=== PATIENT | male | born 1990 | race Caucasian/White ===

== ENCOUNTER 2017-12-31 18:25 | Emergency (ER) | payer OTHER ==
[2017-12-31 18:46] VITALS: BP 135/77; PULSE 77; TEMP 98.6; BMI 27.8
--- NOTE | 2017-12-31 18:51 | PDOC ---
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 Patient states he accidentally slammed a car door onto his finger yesterday. Pain is described as 5/10 throbbing nonradiating constant discomfort. He denies extremity numbness or tingling sensation. Patient denies any other complaints. Occurred: reports: yesterday Pain Location: reports: upper extremity (right 5th finger) Past History - Past Medical History Allergies/Adverse Reactions: Allergies Allergy/AdvReac Type Severity Reaction Status Date / Time nickel Allergy Verified 12/31/17 18:42 No Known Drug Allergies Allergy Verified 12/31/17 18:42 Home Medications: Ambulatory Orders NK [No Known Home Medication] 12/31/17 COPD: No - Surgical History Appendectomy: Yes - Immunization History Immunization Up to Date: Yes (Hep B OK. ) - Suicide/Smoking/Psychosocial Hx Smoking Status: No Smoking History: Never smoked Have you smoked in the past 12 months: No Number of Cigarettes Smoked Daily: 0 Hx Alcohol Use: Yes (SOCIAL) Drug/Substance Use Hx: No Substance Use Type: None Review of Systems - Review of Systems Able to Perform ROS?: Yes Comments:: 12/31/17 18:50 right 5th digit +pain Neg ext numbness/tingling sensation Is the patient limited Gambian proficient: No *Physical Exam - Vital Signs Last Vital Signs Temp Pulse Resp BP Pulse Ox 98.6 F 77 18 135/77 99 12/31/17 18:42 12/31/17 18:42 12/31/17 18:42 12/31/17 18:42 12/31/17 18:42 - Physical Exam Comments: 12/31/17 18:50 Right 5th digit 100% subungual hematoma cap refill <2sec 2 point sensation intact F.R.O.M. Procedure: trephinate 5th right fingernail +blodd drainage +instant relief ED Treatment Course - RADIOLOGY Radiology Studies Ordered: Category Date Time Status FINGER(S) RIGHT [RAD] Stat Radiology 12/31/17 18:34 Ordered Radiograph Interpretation: 12/31/17 19:15 Xray right 5th digit; neg fx/dislocations Medical Decision Making - Medical Decision Making 12/31/17 18:52 27-year-old male who is right hand dominant presents with a complete subungual hematoma to the right fifth digit. Procedure/trephination of the nail with blood drainage. Instant relief of pain. X-ray performed /negative fracture *DC/Admit/Observation/Transfer Diagnosis at time of Disposition: Subungual hematoma of fingernail Qualifiers: Encounter type: initial encounter Qualified Code(s): S60.10XA - Contusion of unspecified finger with damage to nail, initial encounter - Discharge Dispostion Disposition: HOME Condition at time of disposition: Stable Admit: No - Referrals Referrals: Tate Palmer MD [Staff Physician] - - Patient Instructions Printed Discharge Instructions: DI for Subungual Hematoma Additional Instructions: Tylenol alternating with Motrin as needed for pain Return to the ER as needed - Post Discharge Activity Forms/Work/School Notes: Back to Work
== END 2017-12-31 19:25 | disposition home or self-care (01) ==
LOC: JERFT 18:25
PROC: 0H9QXZZ Drainage of Finger Nail, External Approach (ICD-10-PCS; principal; 2017-12-31)
DX: S60.151A Contusion of right little finger with damage to nail, initial encounter (principal); V48.4XXA Person boarding or alighting a car injured in noncollision transport accident, initial encounter; Y92.488 Other paved roadways as the place of occurrence of the external cause; Y93.89 Activity, other specified; Y99.0 Civilian activity done for income or pay
CPT/HCPCS: 73140-TC-RT-FY; 99281-25

== ENCOUNTER 2019-08-16 23:44 | Emergency (ER) | payer OTHER ==
[2019-08-16 23:52] VITALS: BP 120/70; PULSE 80; TEMP 98.3; BMI 22.3
[2019-08-17] MEDS ORDERED: EMTRICITABINE 200MG/TENOFOVIR 300MG PO ONE
[2019-08-17] MEDS ORDERED: RALTEGRAVIR POTASSIUM 400 MG TAB PO ONE
--- NOTE | 2019-08-17 00:05 | PDOC ---
Post Exposure HPI - General Chief Complaint: Blood/Body Fluid Exposure [facility] Stated Complaint: EXPOSURE Time Seen by Provider: 08/16/19 23:57 History Source: Patient Exam Limitations: No Limitations - History of Present Illness Initial Comments: 08/17/19 00:02 HISTORY OF PRESENT ILLNESS: 29-year-old male without significant medical history of presents emergency department for evaluation of blood exposure. 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 No recent travel or sick contacts. PAST MEDICAL HISTORY: Denies past medical history SURGICAL HISTORY: Denies ALLERGIES: No known drug allergies REVIEW OF SYSTEMS General/Constitutional: Denies fever or chills. Denies weakness, weight change. HEENT: Denies change in vision. Denies ear pain or discharge. Denies sore throat. Cardiovascular: Denies chest pain or shortness of breath. Respiratory: Denies cough, wheezing, or hemoptysis. Gastrointestinal: Denies nausea, vomiting, diarrhea or constipation. Denies rectal bleeding. Genitourinary: Denies dysuria, frequency, or change in urination. Musculoskeletal: Denies joint or muscle swelling or pain. Denies neck or back pain. Skin and breasts: Denies rash or easy bruising. Neurologic: Denies headache, vertigo, loss of consciousness, or loss of sensation. Psychiatric: Denies depression or anxiety. Endocrine: Denies increased thirst. Denies abnormal weight change. Hematologic/Lymphatic: Denies anemia, easy bleeding, or history of blood clots. Allergic/Immunologic: Denies hives or skin allergy. Denies latex allergy. PHYSICAL EXAM General Appearance: Well-appearing, appropriately dressed. No apparent distress , no intoxication. HEENT: EOMI, PERRLA, normal ENT inspection, normal voice, TMs normal, pharynx normal. No conjunctival pallor. No photophobia, scleral icterus. Neck: Supple. Trachea midline. No tenderness, rigidity, carotid bruit, stridor , lymphadenopathy, or thyromegaly. Respiratory/Chest: Lungs CTAB. No shortness of breath, chest tenderness, respiratory distress, accessory muscle use. No crackles, rales, rhonchi, stridor , wheezing, dullness Cardiovascular: RRR. S1, S2. No JVD, murmur, bradycardia, tachycardia. Vascular Pulses: Dorsalis-Pedis (R): 2+, Dorsalis-Pedis (L): 2+ Gastrointestinal/Abdominal: Normal bowel sounds. Abdomen soft, non-distended. No tenderness or rebound tenderness. No organomegaly, pulsatile mass, guarding, hernia, hepatomegaly, splenomegaly. Lymphatic: No adenopathy, tenderness. Musculoskeletal/Extremities: Normal inspection. FROM of all extremities, normal capillary refill. Pelvis Stable. No CVA tenderness. No tenderness to extremities, pedal edema, swelling, erythema or deformity. Integumentary: Appropriate color, dry, warm. No cyanosis, erythema, jaundice or rash Neurologic: lathe winder II-XII intact. Fully oriented, alert. Appropriate mood/affect. Motor strength 5/5. No appreciable EOM palsy, facial droop or sensory deficit. Exposed Location: Bilateral: Eye(s), Mouth Assessing Significant Risk PEP: Yes Mucocutaneous, Yes Blood, Yes Potentially Infectious Fluid, No Percutaneous, No Non-intact Skin Past History - Past Medical History Allergies/Adverse Reactions: Allergies Allergy/AdvReac Type Severity Reaction Status Date / Time nickel Allergy Verified 08/16/19 23:52 No Known Drug Allergies Allergy Verified 08/16/19 23:52 Home Medications: Ambulatory Orders Ondansetron [Zofran -] 4 mg PO BID #30 tablet 08/17/19 COPD: No - Surgical History Appendectomy: Yes - Immunization History Immunization Up to Date: Yes (Hep B OK. ) - Psycho Social/Smoking Cessation Hx Smoking Status: No Smoking History: Never smoked Have you smoked in the past 12 months: No Number of Cigarettes Smoked Daily: 0 Hx Alcohol Use: No Drug/Substance Use Hx: No Substance Use Type: None Review of Systems - Review of Systems All Other Systems: Reviewed and Negative *Physical Exam - Vital Signs Last Vital Signs Temp Pulse Resp BP Pulse Ox 98.3 F 80 18 120/70 100 08/16/19 23:50 08/16/19 23:50 08/16/19 23:50 08/16/19 23:50 08/16/19 23:50 Post Exposure - ED Protocol - Exposure Treatment Source Patient HIV Status:: Unknown Is PEP indicated?: Yes Prophylaxis for HIV discussed?: Yes Prophylaxis given?: Yes Treatment Given:: Truvada (Tenof+Emtricita), Isentress (Raltegravir) Drug(s) Information Sheets given:: Yes Baseline bloods drawn prophylaxis:(use *Exposure-Hosp Emp): Yes - Referrals Employee Referred to Employee Health:: Yes Employee Referred to Infectious Disease Specialist:: Vesta Valerio Medical Decision Making - Medical Decision Making 08/17/19 00:04 A/P: 29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 Source patient is unknown for infectious disease Postexposure labs including HIV testing HIV prophylaxis Discharge home 08/17/19 00:29 Discharge - Discharge Information Problems reviewed: Yes Clinical Impression/Diagnosis: Exposure to blood Condition: Stable Disposition: HOME - Admission No - Additional Discharge Information Prescriptions: Ondansetron [Zofran -] 4 mg PO BID #30 tablet - Follow up/Referral Referrals: Vesta Valerio MD [Staff Physician] - - Patient Discharge Instructions Patient Printed Discharge Instructions: How to Handle Body Fluid 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 Always have protected sex. Medications: Have enough Truvada dispensed to last all the course of this prophylaxis treatment YOu have 5 days of Raltegravir and a prescription for Raltegravir has been transmitted to your pharmacy Drink plenty of fluids with these medications. Keep wound clean and watch for any signs of infection and seek care if needed Follow-up with [facility] or [facility] for further instruction and organizing retesting as directed by physician to be seen in 72 hours. for medication evaluation and Further instruction. Your Hepatitis labs will not be available until tomorrow and you may call to leave a message for call back with these results. Generally HIV and hepatitis is retested every 3, 6, and 12 months. - Post Discharge Activity Work/Back to School Note: Back to Work
[2019-08-17] MEDS ORDERED: HIV POST EXPOSURE PROPHYLAXIS KIT PO ONE (00:12)
[2019-08-17] MEDS ORDERED: HIV POST EXPOSURE PROPHYLAXIS KIT NR ONE (00:42)
[2019-08-17 01:17] LABS: BASO % 0.6 % (0-2.0); EOS % 2.8 % (0-4.5); HEMATOCRIT 44.8 % (35.4-49); HEMOGLOBIN 15.1 GM/dL (11.7-16.9); LYMPH % 43.5 % (8-40); MCH 30.9 pg (25.7-33.7); MCHC 33.7 g/dl (32.0-35.9); MEAN CELL VOLUME 91.7 fl (80-96); MEAN PLT VOLUME 8.8 fl (7.5-11.1); MONO % 7.4 % (3.8-10.2); NEUT % 45.7 % (42.8-82.8); PLATELET COUNT 210 K/MM3 (134-434); RBC 4.88 M/mm3 (4.00-5.60); RDW 12.2 % (11.9-15.9); WHITE BLOOD COUNT 7.2 K/mm3 (4.0-10.0)
[2019-08-17 01:24] LABS: ALBUMIN 4.7 g/dl (3.4-5.0); BILIRUBIN,TOTAL 0.3 mg/dL (0.2-1); BLOOD UREA NITROGEN 20.3 mg/dL (7-18); CALCIUM 9.4 mg/dL (8.5-10.1); CREATININE 1.1 mg/dL (0.55-1.3); PHOSPHOROUS 3.4 mg/dL (2.5-4.9); POTASSIUM 3.7 mmol/L (3.5-5.1); TOT PROT 8.1 g/dl (6.4-8.2)
[2019-08-17 02:16] LABS: URIC ACID 4.7 mg/dL (2.6-7.2)
== END 2019-08-17 01:35 | disposition home or self-care (01) ==
LOC: JER 23:44
DX: Z77.21 Contact with and (suspected) exposure to potentially hazardous body fluids (principal); Y35.891A Legal intervention involving other specified means, law enforcement official injured, initial encounter; Y93.F9 Activity, other caregiving; Y92.89 Other specified places as the place of occurrence of the external cause; Y99.0 Civilian activity done for income or pay
CPT/HCPCS: 36415; 80053; 82465; 82977; 83615; 84100; 84478; 84550; 85025; 86317; 86704; 86706; 86803; 87340; 87389; 99281-25

== ENCOUNTER 2022-04-23 14:16 | Emergency (ER) | payer OTHER ==
[2022-04-23 14:32] VITALS: BP 126/79; PULSE 102; TEMP 97; BMI 26.7
== END 2022-04-23 17:21 | disposition home or self-care (01) ==
LOC: JERFT 14:16
DX: S61.451A Open bite of right hand, initial encounter (principal); S61.452A Open bite of left hand, initial encounter; Y04.1XXA Assault by human bite, initial encounter
CPT/HCPCS: 99282-25

== ENCOUNTER 2023-01-10 16:27 | Emergency (ER) | payer OTHER ==
[2023-01-10] MEDS ORDERED: DIPHTH,PERTUSS(ACELL),TET 0.5 ML DISP.SYRIN IM ONE ×2 (17:26→17:37)
[2023-01-10 17:50] VITALS: BP 134/91; PULSE 80; RESP 18; TEMP 98.6; BMI 27.6
== END 2023-01-10 17:57 | disposition home or self-care (01) ==
LOC: FER 16:27
PROC: 3E0234Z Introduction of Serum, Toxoid and Vaccine into Muscle, Percutaneous Approach (ICD-10-PCS; principal; 2023-01-10)
DX: S70.312A Abrasion, left thigh, initial encounter (principal); S70.311A Abrasion, right thigh, initial encounter; W22.8XXA Striking against or struck by other objects, initial encounter
CPT/HCPCS: 90715; 99284-25

== ENCOUNTER 2025-08-24 15:04 | Emergency (ER) | payer OTHER ==
[2025-08-24 15:32] VITALS: BP 137/91; PULSE 85; RESP 18; TEMP 98; BMI 28.3
[2025-08-24] MEDS ORDERED: IBUPROFEN 600 MG TABLET (FP) PO ONE (16:30)
[2025-08-24] MEDS ORDERED: METHOCARBAMOL 500 MG TABLET ONE (16:30)
[2025-08-24] MEDS ORDERED: ACETAMINOPHEN 500 MG TABLET (FP) ONE (16:31)
[2025-08-24] MEDS: IBUPROFEN 600 MG TABLET (FP) PO ONE (16:39)
[2025-08-24] MEDS: ACETAMINOPHEN 500 MG TABLET (FP) PO ONE (16:39)
[2025-08-24] MEDS: METHOCARBAMOL 500 MG TABLET PO ONE (16:39)
== END 2025-08-24 17:41 | disposition home or self-care (01) ==
LOC: JER 15:04
DX: S16.1XXA Strain of muscle, fascia and tendon at neck level, initial encounter (principal); S39.012A Strain of muscle, fascia and tendon of lower back, initial encounter; V49.40XA Driver injured in collision with unspecified motor vehicles in traffic accident, initial encounter; Y92.410 Unspecified street and highway as the place of occurrence of the external cause; Y35.811A Legal intervention involving manhandling, law enforcement official injured, initial encounter
CPT/HCPCS: 70450-TC; 72125-TC; 93005; 93010; 99284-25